=== PATIENT | male | born 2005 | race Caucasian/White ===

== ENCOUNTER 2024-10-26 10:09 | Emergency (ER) | payer OTHER ==
[2024-10-26] MEDS: Ibuprofen 600 MG Tab PO ONE (11:02)
[2024-10-26] MEDS: Diphtheria,Pertussis(Acell),Tetanus Vaccine 0.5 ML Syringe IM ONE (11:03)
== END 2024-10-26 12:29 | disposition home or self-care (01) ==
LOC: MW.ED 10:09
DX: S67.192A Crushing injury of right middle finger, initial encounter (principal); Z75.8 Other problems related to medical facilities and other health care; W23.1XXA Caught, crushed, jammed, or pinched between stationary objects, initial encounter; Y99.0 Civilian activity done for income or pay; Z23 Encounter for immunization
CPT/HCPCS: 73140; 90471; 90715; 99283; A9270